=== PATIENT | female | born 1980 | race Caucasian/White ===

== ENCOUNTER 2020-08-03 13:00 | Inpatient (IN) | payer OTHER ==
[~2020-08-03] VITALS: Ht 154.9 cm; Wt 79.0 kg
[2020-08-03] MEDS ORDERED: PRENATAL TABLE1 EAC2 PO (13:30)
[2020-08-03 13:38] LABS: BASOPHILS ABSOLUTE AUTO 0.02 K/mm3 (0.00-0.23); BASOPHILS PERCENT AUTO 0 % (0-2); EOSINOPHILS ABSOLUTE AUTO 0.03 K/mm3 (0.00-0.68); EOSINOPHILS PERCENT AUTO 0 % (0-6); Hematocrit 42.3 % (33.0-51.0); Hemoglobin 13.8 g/dL (11.5-16.0); IMMATURE GRAN ABSOLUTE AUTO 0.11 K/mm3 (0.00-0.10); IMMATURE GRAN PERCENT AUTO 1 % (0-1); LYMPHOCYTES ABSOLUTE AUTO 1.87 K/mm3 (0.84-5.20); LYMPHOCYTES PERCENT AUTO 13 % (21-46); MONOCYTES ABSOLUTE AUTO 0.71 K/mm3 (0.16-1.47); MONOCYTES PERCENT AUTO 5 % (4-13); Mean Corpuscular HGB 29.9 pg (26.0-34.0); Mean Corpuscular HGB Conc 32.6 g/dL (31.5-36.5); Mean Corpuscular Volume 92 fL (80-100); Mean Platelet Volume 12.7 fL (9.1-12.4); NEUTROPHILS PERCENT AUTO 81 % (41-73); Platelet Count 244 K/mm3 (150-400); RDW Coefficient Variation 14.8 % (11.7-14.2); Red Blood Cell Count 4.61 M/mm3 (3.80-5.20); White Blood Cell Count 14.04 K/mm3 (4.00-11.30)
[2020-08-03 14:16] LABS: Influenza A, PCR Negative (NEGATIVE); SARS-Cov-2 (COVID-19) PCR, MMC Negative (NEGATIVE)
[2020-08-03 14:17] LABS: Influenza B, PCR Negative (NEGATIVE); Resp Syncytial Virus, PCR Negative (NEGATIVE)
[2020-08-03 14:44] LABS: Source, Urine Voided
[2020-08-03 14:52] LABS: Appearance, Urine Clear (Clear); Bilirubin, Urine Neg (Neg); Blood, Urine 5+ (Neg); Color, Urine Yellow (P-Yellow); Glucose Qualitative, Urine Neg (Neg); Ketones, Urine 2+ (Neg); Leukocyte Esterase, Urine Neg (Neg); Nitrite, Urine Neg (Neg); Protein, Urine 2+ (Neg); Specific Gravity, Urine 1.025 (1.003-1.022); Urobilinogen, Urine NORM (Normal)
[2020-08-03 14:55] LABS: Alanine Aminotransfer (ALT/SGP 16 U/L (12-78); Albumin/Globulin Ratio 0.7 (0.8-1.8); Alk Phos 188 U/L (50-136); Anion Gap 12 mmol/L (6-16); Aspartate Aminotrans (AST/SGOT 12 U/L (12-37); Bilirubin, Total 0.3 mg/dL (0.1-1.0); Blood Urea Nitrogen 12 mg/dL (8-24); Bun/Creatinine Ratio 15.7 (12.0-20.0); CO2, Blood 19 mmol/L (21-32); Calcium, Blood 9.5 mg/dL (8.5-10.1); Chloride, Blood 107 mmol/L (98-108); Creatinine, Blood 0.77 mg/dL (0.40-1.00); Globulin, Blood 4.4 g/dL (2.2-4.0); Glomerular Filtration Rate >60 (60-); Glucose, Blood 93 mg/dL (70-99); Potassium, Blood 4.2 mmol/L (3.5-5.5); Sodium, Blood 138 mmol/L (136-145); Total Protein, Blood 7.4 g/dL (6.4-8.2)
[2020-08-03 14:58] LABS: Bacteria Mod /hpf; Mucus Light (0-Heavy); Squamous Epithelial Cells Few /hpf (Few); White Blood Cells, Urine 0-2 /hpf (0-5)
[2020-08-03 22:50] LABS: PCO2 Cord - Arterial 38.5 mmHg (40-50); PCO2 Cord - Venous 36.2 mmHg (40-50); PO2 Cord - Arterial 19.8 mmHg (16-20); PO2 Cord - Venous 20.4 mmHg (28-32); pH Cord - Arterial 7.31 (7.28-7.35); pH Umbilical Cord - Venous 7.32 (7.26-7.35)
--- NOTE | 2020-08-03 22:50 | NUR ---
08/03/20 2250 HumeraRakesh Lynne BABY BOY BORN AT 2224 WITH SPONTANEUS CRY. CORD BLOOD SAMPLE SENT WITH OB STAFF, CORD SEGMENT SENT WITH RT.
--- NOTE | 2020-08-03 22:56 | NUR ---
9508 -RT attended C/S. -Baby boy born with strong cry, good tone, and continued improving color. -PT stimulated and dried. -No further RT interventions.
[2020-08-04 05:40] LABS: BASOPHILS ABSOLUTE AUTO 0.04 K/mm3 (0.00-0.23); BASOPHILS PERCENT AUTO 0 % (0-2); EOSINOPHILS PERCENT AUTO 0 % (0-6); Hematocrit 33.4 % (33.0-51.0); Hemoglobin 10.7 g/dL (11.5-16.0); IMMATURE GRAN ABSOLUTE AUTO 0.16 K/mm3 (0.00-0.10); IMMATURE GRAN PERCENT AUTO 1 % (0-1); LYMPHOCYTES ABSOLUTE AUTO 1.21 K/mm3 (0.84-5.20); LYMPHOCYTES PERCENT AUTO 5 % (21-46); MONOCYTES ABSOLUTE AUTO 1.16 K/mm3 (0.16-1.47); MONOCYTES PERCENT AUTO 5 % (4-13); Mean Corpuscular HGB 29.2 pg (26.0-34.0); Mean Corpuscular Volume 91 fL (80-100); Mean Platelet Volume 12.6 fL (9.1-12.4); NEUTROPHILS ABSOLUTE AUTO 22.01 K/mm3 (1.96-9.15); NEUTROPHILS PERCENT AUTO 90 % (41-73); Platelet Count 190 K/mm3 (150-400); RDW Coefficient Variation 14.9 % (11.7-14.2); RDW Standard Deviation 48.9 fL (35.1-46.3); Red Blood Cell Count 3.66 M/mm3 (3.80-5.20); White Blood Cell Count 24.58 K/mm3 (4.00-11.30)
--- NOTE | 2020-08-04 08:21 | NUR ---
PT REFUSING ABDOMINAL BINDER AND REQUESTED THAT NURSE NOT RETURN BED INTO LOW POSITION SO THAT SHE COULD SEE THE BABY FROM HER BED. PT EDUCATED ON FALLS AND TO CALL NURSE PRIOR TO GETTING OOB. CALL LIGHT WITHIN REACH.
[2020-08-05] MEDS ORDERED: IBUP800 PO (09:03)
[2020-08-05] MEDS ORDERED: Percocet 5-3251 EACH PO (09:04)
--- NOTE | 2020-08-05 14:26 | NUR ---
FAXED FACE SHEET TO PEDIATRIC CARDIOLOGY AT [facility] TO CALL MOTHER TO SET UP A 2-3 F/U APPOINTMENT FOR BABY. DR. HUDDLESTON VERBALIZED SHE TALKED TO [facility] AND VERBALIZED SHE WOULD CALL DR. CASSIDY'S OFFICE ABOUT ECHO RESULTS AND F/U NEEDS.
--- NOTE | 2020-08-05 15:58 | NUR ---
DISCHARGE MOTHER EDUCATED ON AND RECEIVED PRINTED MATERNAL + INSTRUCTIONS AND VERBALIZED AN UNDERSTANDING. HARD RX FOR MOTRIN + PERCOCET GIVEN TO MOM. MOM REPORTS SHE WILL CHOOSE DIFFERENT CERTIFIED NURSE FOR BABY AND VERBALIZED AN UNDERSTANDING OF NEEDING TO BE SEEN IN 2 WEEKS FOR FIRST F/U APPT. MOTHER LEFT WITH ALL PERSONAL BELONGINGS WITH SIG OTHER AT SIDE.
--- NOTE | 2020-08-15 18:55 | NUR ---
LATE ENTRY PER EMR AND RN
== END 2020-08-05 15:45 | disposition home or self-care (01) | DRG 788 ==
LOC: BC 13:00 → OBS 13:35 → BC 13:39
PROVIDERS: ADMIT Obstetrics & Gynecology
PROC: 10D00Z1 Extraction of Products of Conception, Low, Open Approach (ICD-10-PCS; principal; 2020-08-03 21:45)
DX: O13.4 Gestational [pregnancy-induced] hypertension without significant proteinuria, complicating childbirth (principal); Z3A.39 39 weeks gestation of pregnancy; Z37.0 Single live birth; O62.1 Secondary uterine inertia; O33.9 Maternal care for disproportion, unspecified; O77.0 Labor and delivery complicated by meconium in amniotic fluid; Z20.822 Contact with and (suspected) exposure to COVID-19
CPT/HCPCS: 0241U; 36415; 80053; 81001; 82803; 85025; 86850; 86900; 86901; A9270; J0690; J1885; J2210; J2590; J2765; J3010; J7120

== ENCOUNTER 2022-09-25 07:30 | Inpatient (IN) | payer OTHER ==
[~2022-09-25] VITALS: Ht 154.9 cm; Wt 79.1 kg
[~2022-09-25 07:30] MED LIST: IBUP800 PO; PRENATAL TABLE1 EAC2 PO; Percocet 5-3251 EACH PO
--- NOTE | 2022-09-25 09:40 | NUR ---
LABS DRAWN FROM IV START PER PROTOCOL
[2022-09-25 09:47] LABS: BASOPHILS ABSOLUTE AUTO 0.03 K/mm3 (0.00-0.23); BASOPHILS PERCENT AUTO 0 % (0-2); EOSINOPHILS ABSOLUTE AUTO 0.07 K/mm3 (0.00-0.68); EOSINOPHILS PERCENT AUTO 1 % (0-6); Hematocrit 38.2 % (33.0-51.0); Hemoglobin 12.8 g/dL (11.5-16.0); IMMATURE GRAN ABSOLUTE AUTO 0.07 K/mm3 (0.00-0.10); IMMATURE GRAN PERCENT AUTO 1 % (0-1); LYMPHOCYTES ABSOLUTE AUTO 1.87 K/mm3 (0.84-5.20); LYMPHOCYTES PERCENT AUTO 20 % (21-46); MONOCYTES ABSOLUTE AUTO 0.54 K/mm3 (0.16-1.47); MONOCYTES PERCENT AUTO 6 % (4-13); Mean Corpuscular HGB Conc 33.5 g/dL (31.5-36.5); Mean Corpuscular Volume 90 fL (80-100); Mean Platelet Volume 10.9 fL (9.1-12.4); NEUTROPHILS ABSOLUTE AUTO 6.87 K/mm3 (1.96-9.15); NEUTROPHILS PERCENT AUTO 73 % (41-73); Platelet Count 270 K/mm3 (150-400); RDW Coefficient Variation 13.5 % (11.7-14.2); RDW Standard Deviation 43.9 fL (35.1-46.3); Red Blood Cell Count 4.26 M/mm3 (3.80-5.20); White Blood Cell Count 9.45 K/mm3 (4.00-11.30)
--- NOTE | 2022-09-25 10:46 | NUR ---
[facility] NOTIFIED BY OR THAT 1100 C-SEC IS BEING PUSHED BACK TO [phone]. PT MADE AWARE AND UNDERSTANDS.
--- NOTE | 2022-09-25 14:03 | NUR ---
09/25/22 1403 Jodi Walls VIGOROUS MALE 1351 WEIGHT 3260GMS 7-LBS 3-OZ LENGTH 19.75 HEAD 14 CHEST 13.25
[2022-09-25 14:09] LABS: PCO2 Cord - Arterial 45.9 mmHg (40-50); pH Cord - Arterial 7.34 (7.28-7.35)
[2022-09-25 14:11] LABS: PCO2 Cord - Venous 38.1 mmHg (40-50); PO2 Cord - Venous 22.8 mmHg (28-32)
[2022-09-25] MEDS ORDERED: Percocet 5-3251 EACH PO (18:51)
[2022-09-25] MEDS ORDERED: NAPR500 PO (18:52)
[2022-09-26 05:43] LABS: BASOPHILS ABSOLUTE AUTO 0.02 K/mm3 (0.00-0.23); BASOPHILS PERCENT AUTO 0 % (0-2); EOSINOPHILS ABSOLUTE AUTO 0.17 K/mm3 (0.00-0.68); EOSINOPHILS PERCENT AUTO 1 % (0-6); Hematocrit 34.1 % (33.0-51.0); Hemoglobin 11.4 g/dL (11.5-16.0); IMMATURE GRAN ABSOLUTE AUTO 0.07 K/mm3 (0.00-0.10); IMMATURE GRAN PERCENT AUTO 1 % (0-1); LYMPHOCYTES ABSOLUTE AUTO 1.97 K/mm3 (0.84-5.20); LYMPHOCYTES PERCENT AUTO 15 % (21-46); MONOCYTES ABSOLUTE AUTO 0.76 K/mm3 (0.16-1.47); MONOCYTES PERCENT AUTO 6 % (4-13); Mean Corpuscular HGB 29.9 pg (26.0-34.0); Mean Corpuscular HGB Conc 33.4 g/dL (31.5-36.5); Mean Corpuscular Volume 90 fL (80-100); Mean Platelet Volume 10.8 fL (9.1-12.4); NEUTROPHILS ABSOLUTE AUTO 10.05 K/mm3 (1.96-9.15); NEUTROPHILS PERCENT AUTO 77 % (41-73); Platelet Count 245 K/mm3 (150-400); RDW Coefficient Variation 13.6 % (11.7-14.2); RDW Standard Deviation 44.2 fL (35.1-46.3); Red Blood Cell Count 3.81 M/mm3 (3.80-5.20); White Blood Cell Count 13.04 K/mm3 (4.00-11.30)
--- NOTE | 2022-09-26 11:33 | NUR ---
Printed d/c instructions further reviewed w/pt. Questions answered to her satisfaction, denies additional questions. IV d/c'd. Pt d/c'd home ambulatory to care of SO.
== END 2022-09-26 11:00 | disposition home or self-care (01) | DRG 788 ==
LOC: BC 07:30
PROVIDERS: ADMIT Obstetrics & Gynecology
PROC: 10D00Z1 Extraction of Products of Conception, Low, Open Approach (ICD-10-PCS; principal; 2022-09-25 13:00)
DX: O34.211 Maternal care for low transverse scar from previous cesarean delivery (principal); Z37.0 Single live birth; Z67.10 Type A blood, Rh positive; Z3A.39 39 weeks gestation of pregnancy; Z28.21 Immunization not carried out because of patient refusal
CPT/HCPCS: 36415; 82803; 85025; 86850; 86900; 86901; 90715; A9270; J0690; J1885; J2370; J2590; J2765; J7120